=== PATIENT | female | born 1945 | race Hispanic/Latino ===

== ENCOUNTER 2018-06-05 06:52 | Day surgery (SDC) | payer MEDICARE ==
[2018-06-05] MEDS ORDERED: NACL 0.9% 500 ML 500 ML IV SCH (08:00)
[2018-06-05] MEDS ORDERED: NACL 0.9% 500 ML 1,500 ML ONE (08:24)
[2018-06-05] MEDS ORDERED: XYLOCAINE 2% INFILTRATI ONE (08:24)
[2018-06-05] MEDS ORDERED: NACL 0.9% 100 ML ONE (08:25)
[2018-06-05] MEDS ORDERED: ANGIOMAX IV ONE ×3 (08:25→09:42)
[2018-06-05] MEDS ORDERED: SUBLIMAZE ONE (09:05)
[2018-06-05] MEDS ORDERED: VERSED ONE (09:05)
[2018-06-05] MEDS ORDERED: CALAN ONE (09:33)
[2018-06-05] MEDS ORDERED: NITROGLYCERIN SYRINGE 0 ML ONE (09:34)
[2018-06-05] MEDS ORDERED: NACL 0.9% 50 ML ONE (09:40)
[2018-06-05] MEDS ORDERED: ZOFRAN ONE (09:56)
--- NOTE | 2018-06-05 12:39 | Cardiac Catherization Report ---
PERIPHERAL ANGIOGRAM The patient is a 73-year-old white female with history of thyroid cancer in addition to type 2 diabetes mellitus for a long time along with history of chronic smoking, complaining of claudication bilaterally, and the patient has noninvasive studies, which showed significant bilateral lower extremity disease with monophasic Doppler waveforms bilaterally along with occluded distal SFA on the right side and also mild to moderate left distal femoral artery stenosis. Because of her symptoms and abnormal noninvasive findings, it was decided to proceed with contrast angiography. The patient was tried on medical therapy with cilostazol with no significant effect. Hence, the contrast angiography was scheduled for further evaluation. The patient is aware of the procedure, potential complications and alternatives of therapy available. DESCRIPTION OF PROCEDURE: The patient was brought to the catheterization laboratory in a fasting condition. The patient was evaluated for moderate sedation and was felt to be an appropriate candidate for moderate sedation and she received IV Versed and fentanyl. Apparently, the patient cannot take heparin in the past. She got rash. Considering this patient received Angiomax as the anticoagulant. Local anesthesia was given in the right wrist area after thorough cleansing of the right upper extremity. The right radial artery puncture was made using 21-gauge arterial puncture needle. Subsequently, 5-Swedish slender sheath was introduced. Using 5-Swedish pigtail catheter, abdominal aortogram was performed with placement of the catheter under fluoroscopy using the guidewire at L1-L2 junction. Subsequently, pigtail catheter was moved to the L4-L5 area and contrast angiography using DSA was obtained of the pelvic vessels involved both lower extremities. However, visualization of the left lower extremity distal vessels was poor. Hence, a pigtail catheter was changed to a 5-Swedish vertebral catheter with the help of a Glidewire. It was placed in the left proximal part of the superficial femoral artery and contrast angiography using hand injection was performed of the left lower extremity. At the end of the procedure, the patient was noted to have gradient across the mid to superficial femoral artery on the left side. Hence, a repeat angiogram of that area was obtained, which showed a focal stenosis. Gradient of more than 10-20 mmHg noted. At the end of the procedure, catheter and sheath were removed. Good hemostasis was achieved with a radial band. The patient tolerated the sedation well. The patient was monitored with pulse oximetry, EKG monitoring, and hemodynamic monitoring throughout the procedure. The patient at the end of the procedures communicating normally, moving all the extremities and breathing normally. The patient was transferred to the room in stable condition. Following findings were noted: 1. Abdominal aorta showed diffuse calcification; however, normal caliber size without any aneurysmal dilatation. Mild diffuse disease noted. Right radial artery shows smooth 30% proximal disease. Left renal artery without significant disease. 2. Pelvic vessels:Common iliac vessels showed moderate 30% proximal disease bilaterally. However, no gradient noted across these areas. Otherwise, the common iliac and external iliac bilaterally show only mild to moderate diffuse disease. 3. Right superficial femoral artery shows diffuse disease, moderate in the proximal one-third and also mild to moderate in the mid part with total occlusion of the short segment distally. This reconstitutes with excellent collaterals in the distal SFA and popliteal artery. 4. Three vessel runoff was noted in the right lower extremity. 5. Left lower extremity showed patent left superficial femoral artery with a focal 60-70% lesion at the junction of the proximal and mid third with a gradient of 10-20 mm at least. Distally left SFA, popliteal are patent with mild disease. Three vessel runoff noted on the left side. However, distal vessels are not clearly visualized. FINAL IMPRESSION: 1. Diffuse calcification of the abdominal aorta with no aneurysmal dilatation with moderate, mild diffuse disease. 2. Pelvic vessel showed mild to moderate proximal disease in the common iliac arteries, but no gradient noted. Patent internal iliacs noted bilaterally. Right lower extremity shows moderate diffuse disease along with total occlusion in the distal part, short segment with reconstitution in the distal SFA. Popliteal artery without significant disease and 3-vessel runoff on the right side. Left lower extremity shows mild diffuse disease with a focal 60-70% lesion at the junction of the proximal and mid third. Significant gradient noted across this lesion. Three vessel runoff noted, left lower extremity. At this time, the patient has significant lesions in the right distal SFA, namely total occlusion, short segment with a 3-vessel runoff. Similarly, the patient is a very focal left SFA lesion in the mid part with 3-vessel distal runoff. If the patient continues to be symptomatic, then we can consider intervention of these lesions. The patient tolerated the procedure well and the patient was explained of the findings. She understands. Discussed with the patient about risk factor modification, namely quitting smoking. JOB# [id number] DRE/JAILENE BENITEZ
--- NOTE | 2018-06-05 13:20 | Short Stay Summary ---
Short Stay Documentation Date of service: 06/05/18 - History H&P: obtained from office - Allergies and Medications Current Medications: Allergies heparin Allergy (Verified 06/05/18 08:34) HEART PALPITATIONS Penicillins Allergy (Verified 06/05/18 08:34) Hives Home Medications Medication Instructions Recorded Confirmed Last Taken Type Cilostazol [Pletal] 50 mg PO BID 06/05/18 06/05/18 06/04/18 History Ferrous Gluconate [Ferrous 324 mg PO DAILY 06/05/18 06/05/18 06/04/18 History Gluconate 324 MG] Insulin Aspart Prot/Insuln Asp 10 units SQ BID 06/05/18 06/05/18 06/04/18 History [Novolog Mix 70-30 Flexpen Syrn] Levothyroxine [Synthroid] 112 mcg PO QAM 06/05/18 06/05/18 06/04/18 History Lisinopril/Hydrochlorothiazide 1 each PO DAILY 06/05/18 06/05/18 06/04/18 History [Zestoretic 10-12.5 mg Tablet] Metformin HCl 1,000 mg PO BID 06/05/18 06/05/18 06/04/18 History Pioglitazone HCl [Actos] 45 mg PO DAILY 06/05/18 06/05/18 06/04/18 History Pramipexole Di-HCl [Pramipexole 0.25 mg PO BID 06/05/18 06/05/18 06/04/18 History Dihydrochloride] Active Medications Sodium Chloride (Nacl 0.9% 500 Ml) 500 mls @ 50 mls/hr IV DIRECT NAJMA Last Admin: 06/05/18 08:31 Dose: 50 mls/hr Documented by: - Brief post op/procedure progress note Date of procedure: 06/05/18 Pre-op diagnosis: Claudication Post-op diagnosis: other (PVD) Procedure: Peripheral angiogram - please see dictated cath report. Anesthesia: local Findings: PVD Estimated blood loss: none Condition: stable - Disposition Condition at discharge: Good Disposition: -01 TO HOME OR SELFCARE - Discharge Diagnoses (1) PVD (peripheral vascular disease) Status: Chronic (2) Diabetes mellitus Status: Chronic (3) Tobacco use Status: Chronic Short Stay Discharge Plan Activity: advance as tolerated Diet: low fat, low cholesterol, diabetic Wound: open to air, keep clean and dry, per your surgeon's advice Follow up with: JOSE ALFREDO FABIAN MD [Primary Care Provider] - 7 Days Forms: Post Arteriogram Instruct
[2018-06-05 15:38] VITALS: BP 138/52
== END 2018-06-05 15:00 | disposition home or self-care (01) ==
LOC: CATHLABREC 06:52
PROVIDERS: ATTEND Internal Medicine
DX: I70.0 Atherosclerosis of aorta (principal); I73.9 Peripheral vascular disease, unspecified; I74.3 Embolism and thrombosis of arteries of the lower extremities; E11.51 Type 2 diabetes mellitus with diabetic peripheral angiopathy without gangrene; Z88.0 Allergy status to penicillin; Z87.891 Personal history of nicotine dependence; Z79.4 Long term (current) use of insulin; Z79.84 Long term (current) use of oral hypoglycemic drugs; Z79.899 Other long term (current) drug therapy; E78.00 Pure hypercholesterolemia, unspecified; Z90.710 Acquired absence of both cervix and uterus; Z85.850 Personal history of malignant neoplasm of thyroid; Z98.890 Other specified postprocedural states; Z88.8 Allergy status to other drugs, medicaments and biological substances; Z86.2 Personal history of diseases of the blood and blood-forming organs and certain disorders involving the immune mechanism
CPT/HCPCS: 36247; 75625; 75716; 99156; 99157; C1769; C1894; J0583; J2250; J2405; J3010; J7040; Q9967

== ENCOUNTER 2018-09-18 06:41 | Day surgery (SDC) | payer MEDICARE ==
[2018-09-18 07:39] LABS: Basophils # (Auto) 0.1 K/mm3 (0.0-0.1); Basophils % (Auto) 0.9 % (0.0-1.8); Eosinophils # (Auto) 0.4 K/mm3 (0.0-0.4); Eosinophils % (Auto) 5.6 % (0.0-4.3); Hematocrit 34.1 % (30.3-42.9); Hemoglobin 11.5 gm/dl (10.1-14.3); Lymphocytes # (Auto) 1.6 K/mm3 (1.2-5.4); Lymphocytes % (Auto) 21.3 % (13.4-35.0); Mean Corpuscular HGB Conc 34 % (30-34); Mean Corpuscular Volume 97 fl (79-97); Monocytes # (Auto) 0.8 K/mm3 (0.0-0.8); Monocytes % (Auto) 10.6 % (0.0-7.3); Platelet Count 299 K/mm3 (140-440); Red Blood Count 3.53 M/mm3 (3.65-5.03); Red Cell Distribution Width 15.7 % (13.2-15.2)
[2018-09-18 07:48] LABS: INR 0.91 (0.87-1.13)
[2018-09-18] MEDS: NACL 0.9% 500 ML 500 ML IV SCH ×2 (07:49→09:34)
[2018-09-18 07:51] LABS: BUN/Creatinine Ratio 43; Blood Urea Nitrogen 17 mg/dL (7-17); Calcium 9.4 mg/dL (8.4-10.2); Hemolysis Index 3
[2018-09-18] MEDS ORDERED: VERSED ONE (08:37)
[2018-09-18] MEDS ORDERED: SUBLIMAZE ONE (08:37)
[2018-09-18] MEDS ORDERED: XYLOCAINE 2% INFILTRATI ONE ×2 (08:42→09:28)
[2018-09-18] MEDS ORDERED: ANGIOMAX IV ONE ×5 (08:45→09:58)
[2018-09-18] MEDS ORDERED: NACL 0.9% 100 ML ONE (08:45)
[2018-09-18] MEDS ORDERED: WATER FOR INJ Sterile (PF) 10 ML ONE ×2 (08:46→09:55)
[2018-09-18] MEDS ORDERED: NACL 0.9% 500 ML 1,000 ML ONE (08:46)
[2018-09-18] MEDS ORDERED: NACL 0.9% 500 ML 500 ML ONE (08:53)
[2018-09-18] MEDS ORDERED: VERSED IV ONE (09:22)
[2018-09-18] MEDS ORDERED: SUBLIMAZE IV ONE (09:22)
[2018-09-18] MEDS ORDERED: NACL 0.9% 50 ML ONE (09:54)
[2018-09-18] MEDS ORDERED: PLAVIX ONE (11:05)
[2018-09-18] MEDS ORDERED: ALUM-MAG HYDROX-SIMETH 200-200-20MG/5ML ONE (11:05)
[2018-09-18] MEDS ORDERED: PLAVIX PO ONE (11:08)
[2018-09-18] MEDS ORDERED: ALUM-MAG HYDROX-SIMETH 200-200-20MG/5ML PO ONE (11:08)
[2018-09-18 18:05] VITALS: BP 168/54
--- NOTE | 2018-09-19 06:49 | Cardiac Catherization Report ---
PERIPHERAL ARTERIAL INTERVENTION The patient is a 73-year-old female with history of hypertension, diabetes mellitus, known peripheral vascular disease with contrast angiography done a few months ago showing occlusion of the distal SFA and also severe lesions in the proximal and mid left SFA. The patient has 3-vessel runoff. The patient has recurrent cellulitis of left lower extremity in spite of multiple antibiotic courses. The patient is still having cellulitis, which is not getting better. Hence, she was recommended to have intervention of the left superficial femoral artery. Procedure was explained to the patient. Potential complications and alternatives of therapy were explained. She is willing to have the procedure done. DESCRIPTION OF THE PROCEDURE: The patient was brought to the catheterization laboratory in a fasting condition. She was evaluated for moderate sedation and she was felt to be appropriate candidate for moderate sedation. She was given IV Versed and fentanyl starting at 9:22 a.m. and she was monitored continuously with EKG monitoring, pulse oximetry, and hemodynamic monitoring. Sterile drapes were applied after preparing the right and left groins with chlorhexidine solution. Right femoral artery puncture was made under fluoroscopy with the help of 5-[place] micropuncture needle without difficulty. A 5-[place] sheath was introduced. A 4-[place] vertebral catheter was advanced over a 0.035-inch guidewire into the left common femoral area. Angiograms were obtained, which showed presence of 2 significant lesions; 1 focal lesion in the proximal part approaching 70%, and also at the junction of the mid and distal parts, there is a severe, more than 95% focal lesion. Considering her clinical picture, it was felt she would benefit from intervention. The patient received Angiomax as anticoagulant. Apparently, she is not able to tolerate heparin in the past. 6F Destination catheter was advanced up and over to left proximal SFA area. Subsequently using the vertebral catheter as a conduit, spider filter wire was advanced into distal SFA and popliteal area and applied in that area. Subsequently, multiple passes of [place] atherectomy catheter (LeadPagesk one -M )was advanced across the proximal lesion and subsequently advanced into the distal SFA lesion and multiple passes were performed. Angiogram showed very widely opened sites at both places. Both the lesions were dilated with a 5.0 x 20 mm balloon up to 14 atmospheres in 1 minute. Final angiogram showed widely patent SFA with no significant residual stenosis in both the lesions. Spider wire was removed and finally angiogram showed widely patent 3-vessel distal runoff. The 6-[place] Destination sheath was removed and a short 6-[place] sheath was advanced in the right common femoral area. ACT was found to be more than 300 seconds. Once ACT is close to 180 seconds, sheath will be removed and manual pressure will be applied. The patient tolerated the procedure well, was hemodynamically stable throughout the procedure. Able to tolerate moderate sedation without any side effects. Monitoring of the moderate sedation ended at 10:35 a.m. At the end of the procedure, the patient is talking normally and breathing normally and communicating normally. The patient was transferred to the room in stable condition. The patient is already taking aspirin. We will give 300 mg of Plavix, which will be continued for the next 6 months to 1 year. Good distal pulses were palpable at the end of the procedure. Depending on the control of the access site, the patient may be discharged home tomorrow. FINAL IMPRESSION: Uncomplicated intervention of the left superficial femoral artery lesion, proximal focal reduced from 70% to 0%. Similarly, oyx-re-djknjo lesion 95% or more to 0% with good result. No complications noted. Findings were explained to the patient and family. JOB# [id number] DRE/JAILENE BENITEZ
== END 2018-09-18 18:11 | disposition home or self-care (01) ==
LOC: CATHLABREC 06:41
PROVIDERS: ATTEND Internal Medicine
DX: I70.212 Atherosclerosis of native arteries of extremities with intermittent claudication, left leg (principal); E11.51 Type 2 diabetes mellitus with diabetic peripheral angiopathy without gangrene; I10 Essential (primary) hypertension; D64.9 Anemia, unspecified; E78.00 Pure hypercholesterolemia, unspecified; Z79.899 Other long term (current) drug therapy; Z88.0 Allergy status to penicillin; Z79.82 Long term (current) use of aspirin; Z79.4 Long term (current) use of insulin; Z79.84 Long term (current) use of oral hypoglycemic drugs; Z87.891 Personal history of nicotine dependence; Z90.710 Acquired absence of both cervix and uterus; Z85.850 Personal history of malignant neoplasm of thyroid; Z98.890 Other specified postprocedural states; Z88.8 Allergy status to other drugs, medicaments and biological substances; Z80.0 Family history of malignant neoplasm of digestive organs
CPT/HCPCS: 36415; 37225; 75710; 76937; 80048; 82962; 85025; 85347; 85610; 99156; 99157; C1714; C1725; C1769; C1884; C1887; C1894; J0583; J2250; J3010; J7040; Q9967